=== PATIENT | female | born 1970 | race Caucasian/White ===

== ENCOUNTER 2018-05-23 13:01 | Day surgery (SDC) | payer OTHER, MEDICAID ==
[2018-05-23] MEDS ORDERED: FENTAnyl 50 MCG/ML VIAL IV ×3 (16:00)
[2018-05-23] MEDS ORDERED: HYDROmorphONE 1 MG/5 ML IV SYRINGE IV ×3 (16:00)
[2018-05-23] MEDS ORDERED: PROCHLORPERAZINE 10 MG INJ IV (16:00)
[2018-05-23] MEDS ORDERED: DIPHENHYDRAMINE 50 MG INJ IV (16:00)
[2018-05-23] MEDS ORDERED: LIDOCAINE 2% (SDV) 5 ML INJ (16:02)
[2018-05-23] MEDS ORDERED: FENTAnyl 50 MCG/ML VIAL ×2 (16:02→16:39)
[2018-05-23] MEDS ORDERED: PROPOFOL 20 ML (16:02)
[2018-05-23] MEDS ORDERED: MIDAZOLAM 1 MG/ML 2 ML INJ (16:02)
[2018-05-23] MEDS ORDERED: FAMOTIDINE 20 MG INJ (16:15)
[2018-05-23] MEDS ORDERED: DEXAMETHASONE 4 MG/ML 1 ML INJ (16:15)
[2018-05-23] MEDS ORDERED: CEFAZOLIN 1 GM INJ (16:15)
[2018-05-23] MEDS ORDERED: ONDANSETRON 4 MG INJ (16:15)
[2018-05-23] MEDS ORDERED: EPHEDrine SULFATE 50 MG/5 ML SYG (16:28)
[2018-05-23] MEDS: ONDANSETRON 4 MG INJ IV (17:13)
[2018-05-23] MEDS: MEPERIDINE 25 MG INJ IV (17:13)
[2018-05-23] MEDS: OXYCODONE/ACETAMINOPHEN (5/325) TAB PO (17:23)
[2018-05-23] MEDS ORDERED: ACETAMINOPHEN 325 MG TAB PO (17:30)
== END 2018-05-23 18:18 | disposition home or self-care (01) ==
LOC: SDS 13:01
DX: N92.0 Excessive and frequent menstruation with regular cycle (principal); R93.8 Abnormal findings on diagnostic imaging of other specified body structures; N75.0 Cyst of Bartholin's gland
CPT/HCPCS: 56440; 84702; 84703; 86850; 86900; 86901; 87070; 87075; 88304